=== PATIENT | female | born 1990 | race Caucasian/White ===

== ENCOUNTER 2020-02-19 06:14 | Inpatient (IN) | payer OTHER ==
[2020-02-19] MEDS ORDERED: LACTATED RINGERS 1,000 ML ONE (06:27)
[2020-02-19] MEDS ORDERED: AMPICILLIN/NS 2 GM/100 ML 2 GM/100 ML BAG IV ONE ×2 (06:28→08:00)
[2020-02-19] MEDS ORDERED: LIDOCAINE (2%) 20 MG/1 ML VIAL 20 ML MDV INFILTRATI ONE ×3 (06:29→07:09)
[2020-02-19] MEDS ORDERED: OXYTOCIN 20 UNIT/1000ML DRIP 20,000 MILLIUNITS/1,000 ML BAG IV ONE (06:29)
[2020-02-19] MEDS ORDERED: ACETAMINOPHEN 325 MG TAB PO PRN (07:09)
[2020-02-19] MEDS ORDERED: TERBUTALINE 1 MG/1 ML INJ SUB-Q PRN (07:09)
[2020-02-19] MEDS ORDERED: MINERAL OIL 30 ML ORAL LIQD PO PRN (07:09)
[2020-02-19] MEDS ORDERED: ePHEDrine SULFATE 50 MG/1 ML INJ IV PRN (07:09)
[2020-02-19] MEDS ORDERED: LANOLIN/ZINC/DIMETHICONE (LANSINOH) 7 GM TP PRN (07:12)
[2020-02-19] MEDS ORDERED: HYDROcodone/ACETAMINOPHEN 5-325 MG TAB PO PRN (07:12)
[2020-02-19] MEDS ORDERED: WITCH HAZEL/ GLYCERIN PAD TP PRN (07:12)
[2020-02-19] MEDS ORDERED: MAGNESIUM HYDROXIDE (MOM) ORAL LIQD UDC PO PRN (07:12)
--- NOTE | 2020-02-19 07:12 | History and Physical Report ---
History of Present Illness Date of examination: 02/19/20 Date of admission: 02/19/20 06:19 Chief complaint: Contractions, need to push. History of present illness: 29 year old presents with advanced cervical dilation (completely dilated and +1 station upon arrival to L&D). Patient expresses need to push as she arrived on L&D unit. Patient states she received care at [facility]; no records are available. Patient reports her EDC is 03/11/2020. No records or labs are available. labs have been drawn upon admission. Patient delivered upon arrival to L&D unit. Past History Past Medical History: other (hypothyroidism (takes Levothyroxine 50 mcg daily), obesity) Past Surgical History: no surgical history [employer] History: denies: chlamydia, gonorrhea, hepatitis B, hepatitis C, herpes, HIV, syphilis, trichomonas Family/Genetic History: none Social history: lives with family, full code. denies: smoking, alcohol abuse, prescription drug abuse, IV drug use - Obstetrical History Expected Date of Delivery: 03/11/20 Actual Gestation: 37 Week(s) 0 Day(s) : 2 Para: 1 Hx # Term Pregnancies: 1 Number of Pregnancies: 0 Spontaneous Abortions: 0 Induced : 0 Number of Living Children: 1 Medications and Allergies Allergies Allergy/AdvReac Type Severity Reaction Status Date / Time No Known Allergies Allergy Verified 01/28/16 02:47 Home Medications Medication Instructions Recorded Confirmed Last Taken Type Levothyroxine 50 mg PO DAILY 02/19/20 02/19/20 02/18/20 History Vitamin 1 tab PO DAILY 02/19/20 02/19/20 02/18/20 History Review of Systems All systems: negative (contractions, urge to push, delivery imminent) - Vital Signs Vital signs: Vital Signs Temp Pulse BP 98.7 F 94 H 111/71 02/19/20 06:37 02/19/20 06:37 02/19/20 06:37 Temp Pulse Resp BP Pulse Ox 98.7 F 87 121/73 98 02/19/20 06:37 02/19/20 07:06 02/19/20 07:04 02/19/20 07:06 - Physical Exam Abdomen: Positive: normal appearance, soft. Negative: distention, tenderness, g uarding, rigidity Genitourinary (Female): Positive: normal external genitalia, normal perenium. Negative: perineal/vulvar lesions (no lesions seen) Vagina: Positive: normal moisture Uterus: Positive: enlarged. Negative: tender Anus/Rectum: Positive: normal perianal skin Extremities: Positive: normal. Negative: tenderness, edema - Obstetrical FHR: category 2 Uterine Contraction Monitor Mode: External Cervical Dilatation: 10 (upon arrival to L&D) Cervical Effacement Percentage: 100 station: +1 Results Result Diagrams: 02/19/20 06:15 All other labs normal. Assessment and Plan A: at 37 weeks gestation. Active advanced labor; delivering baby upon arrival to L&D. GBS unknown. No records available. P: Admit. EFM. GBS prophylaxis if possible. Anticipate (pt. delivered upon presentation to L&D unit). Request records. Draw labs.
--- NOTE | 2020-02-19 07:12 | Procedure Note ---
OB Delivery Note - Delivery Date of Delivery: 02/19/20 Surgeon: JOSEPH BOWLING Estimated blood loss: 200cc - Vaginal Delivery presentation: vertex Delivery position: OA Intrapartum events: precipitous labor- <3hr Delivery induction: none Delivery monitor: external FHT, external uterine Route of delivery: Delivery placenta: spontaneous Delivery cord: 3 umbilical vessels Episiotomy: none Delivery laceration: 1st degree Anesthesia: local Delivery comments: Precipitous spontaneous vaginal delivery at 06:29 of liveborn female weighing 2.187 kg over first degree perineal laceration with apgars of 8/9. Baby placed skin to skin with mom immediately after delivery; spontaneous cry and respirations. Baby bulb suctioned and dried with warm blankets. 3 vessel cord double clamped and cut. Spontaneous delivery of intact placenta and membranes by holm mechanism. EBL 200 cc. Fundus firm and midline. Pitocin to IV fluids after delivery of placenta. Repair of first degree perineal laceration with 3-0 vicryl. Vaginal sweep negative. Sponge count correct. Mother and baby stable.
[2020-02-19 07:44] LABS: Hemoglobin 13.1 gm/dl (10.1-14.3); Red Blood Count 4.46 M/mm3 (3.65-5.03)
[2020-02-19 07:45] LABS: Hematocrit 38.5 % (30.3-42.9); Mean Corpuscular HGB Conc 34 % (30-34); Mean Corpuscular Volume 86 fl (79-97); Platelet Count 292 K/mm3 (140-440); Red Cell Distribution Width 14.1 % (13.2-15.2)
[2020-02-19] MEDS ORDERED: OXYTOCIN 20 UNIT/1000ML DRIP 20 UNITS/1,000 ML BAG IV SCH (08:00)
[2020-02-19] MEDS ORDERED: LACTATED RINGERS 1,000 ML IV SCH (08:00)
[2020-02-19] MEDS: IBUPROFEN 600 MG TAB PO SCH ×2 (08:57→20:17)
[2020-02-19 10:56] LABS: Hepatitis C Virus Antibody Non-Reactive (NonReactive)
[2020-02-19 21:01] LABS: Hematocrit 33.4 % (30.3-42.9); Hemoglobin 11.2 gm/dl (10.1-14.3)
[2020-02-19] MEDS ORDERED: LEVOTHYROXINE 50 MCG PO SCH (22:00)
[2020-02-19] MEDS: LEVOTHYROXINE PO SCH (22:56)
[2020-02-19] MEDS: DOCUSATE SODIUM 100 MG CAP PO SCH (22:56)
[2020-02-20] MEDS: IBUPROFEN 600 MG TAB PO SCH ×2 (05:42→17:23)
[2020-02-20] MEDS: DOCUSATE SODIUM 100 MG CAP PO SCH ×3 (10:15→23:11)
--- NOTE | 2020-02-20 10:30 | Progress Note ---
Assessment and Plan A: PP Day #1 Stable P: Follow Routine Orders D/C in the AM RTO in 6 Weeks Subjective - Subjective Date of service: 02/20/20 Patient reports: appetite normal, voiding normally, pain well controlled, flatus, ambulating normally : doing well, bottle feeding (and breatfeeding) Objective - Vital Signs Latest vital signs: Vital Signs Temp Pulse Resp BP Pulse Ox 02/20/20 08:36 98.1 F 68 18 106/59 97 02/20/20 00:34 97.2 F L 69 18 110/69 96 02/19/20 16:04 98.2 F 20 94/63 02/19/20 10:48 97.9 F 69 23 98/59 97 02/19/20 10:30 65 99 Intake and Output 02/19/20 02/20/20 02/20/20 22:59 06:59 14:59 Intake Total 240 480 120 Balance 240 480 120 Intake: Oral 240 120 120 Intake, Free Water 360 Other: Total, Intake Amount 120 120 120 # Voids Void 1 1 1 - Exam Breasts: Present: normal Cardiovascular: Present: Regular rate Lungs: Present: Clear to auscultation, Normal air movement Abdomen: Present: normal appearance, soft, abnormal bowel sounds Uterus: Present: normal, firm, fundal height below umbilicus Extremities: Present: normal
--- NOTE | 2020-02-20 10:32 | Discharge Summary ---
Providers - Providers Date of Admission: 02/19/20 06:19 Date of discharge: 02/21/20 Attending physician: JACKIE MESSINA JR, MD Primary care physician: JACKIE MESSINA JR, MD Hospitalization Reason for admission: active labor Delivery: Episiotomy: none Laceration: 1st degree Other procedures: none complications: none Discharge diagnosis: IUP at term delivered [place] baby: female Condition at discharge: Good Disposition: DC-01 TO HOME OR SELFCARE Plan - Provider Discharge Summary Activity: routine, no sex for 6 weeks, no heavy lifting 4 weeks Diet: routine Instructions: routine Additional instructions: [] Smoking cessation referral if applicable(refer to patient education folder for contact #) [] Refer to [facility] Booklet Call your doctor immediately for: * Fever > 100.5 * Heavy vaginal bleeding ( >1 pad per hour) * Severe persistent headache * Shortness of breath * Reddened, hot, painful area to leg or breast * Drainage or odor from incision. * Keep incision clean and dry at all times and follow doctor's instructions regarding bathing/showering - Follow up plan Follow up: JACKIE MESSINA JR, MD [Primary Care Provider] - 6 Weeks
[2020-02-20] MEDS: LEVOTHYROXINE PO SCH (23:07)
[2020-02-21] MEDS: IBUPROFEN 600 MG TAB PO SCH ×2 (00:28→06:38)
[2020-02-21] MEDS: DOCUSATE SODIUM 100 MG CAP PO SCH (11:15)
[2020-02-21 14:42] VITALS: BP 123/87
== END 2020-02-21 15:00 | disposition home or self-care (01) | DRG 807 ==
LOC: TRG 06:14 → LD 06:19 → OB 11:23
PROVIDERS: ADMIT Obstetrics & Gynecology; ATTEND Obstetrics & Gynecology
PROC: 10E0XZZ Delivery of Products of Conception, External Approach (ICD-10-PCS; principal; 2020-02-19)
PROC: 0HQ9XZZ Repair Perineum Skin, External Approach (ICD-10-PCS; 2020-02-19)
DX: O62.3 Precipitate labor (principal); Z37.0 Single live birth; O70.0 First degree perineal laceration during delivery; O99.284 Endocrine, nutritional and metabolic diseases complicating childbirth; E03.9 Hypothyroidism, unspecified; O99.214 Obesity complicating childbirth; E66.9 Obesity, unspecified; Z3A.37 37 weeks gestation of pregnancy
CPT/HCPCS: 36415; 82962; 83036; 85014; 85018; 85027; 86592; 86706; 86762; 86803; 86850; 86900; 86901; 87806; G0378; A6250; J0290; J2590; J7120